=== PATIENT | male | born 1945 | race Caucasian/White ===

== ENCOUNTER → 2016-03-07 | Outpatient (CLI) | payer OTHER, MEDICARE ==
--- NOTE | 2016-03-07 13:16 | DX ---
PA Chest, Single View - March 07, 2016 Indication: Reassess pacemaker. Comparison: Two-view chest dated March 01, 2016. Findings: The left anterior chest wall dual-lead pacemaker/AICD is unchanged in configuration since . No pneumothorax, pulmonary edema, pleural effusion, or atelectasis. Heart size is kareem l. Impression: Well positioned dual-lead pacemaker/AICD is unchanged.
== END ==
LOC: FIMAGING 10:06
PROVIDERS: ATTEND Nurse Practitioner Family
DX: Z95.810 Presence of automatic (implantable) cardiac defibrillator (principal)

== ENCOUNTER → 2016-04-11 | Outpatient (CLI) | payer OTHER, MEDICARE | LOC: BHFA 14:15 | PROVIDERS: ATTEND Internal Medicine Cardiovascular Disease | DX: I25.10 Atherosclerotic heart disease of native coronary artery without angina pectoris (principal); I10 Essential (primary) hypertension; Z95.810 Presence of automatic (implantable) cardiac defibrillator; I25.5 Ischemic cardiomyopathy; I21.3 ST elevation (STEMI) myocardial infarction of unspecified site; E78.00 Pure hypercholesterolemia, unspecified ==

== ENCOUNTER → 2016-05-09 | Outpatient (CLI) | payer OTHER, MEDICARE | LOC: BHFA 08:00 | PROVIDERS: ATTEND Internal Medicine Cardiovascular Disease | DX: I25.10 Atherosclerotic heart disease of native coronary artery without angina pectoris (principal); I21.3 ST elevation (STEMI) myocardial infarction of unspecified site | CPT/HCPCS: 78472; A9560 ==

== ENCOUNTER → 2017-01-31 | Outpatient (CLI) | payer OTHER, MEDICARE | LOC: CIMAGING 09:56 | PROVIDERS: ATTEND Internal Medicine | DX: K46.9 Unspecified abdominal hernia without obstruction or gangrene (principal) ==

== ENCOUNTER → 2017-02-08 | Outpatient (CLI) | payer OTHER, MEDICARE ==
[~2017-02-08] MED LIST: IOPAMIDOL (ISOVUE 370) 100 ML BTL IV ONE
== END ==
LOC: FIMAGING 09:09
PROVIDERS: ATTEND Surgery
DX: K46.9 Unspecified abdominal hernia without obstruction or gangrene (principal); I71.4 Abdominal aortic aneurysm, without rupture; I70.1 Atherosclerosis of renal artery; K44.9 Diaphragmatic hernia without obstruction or gangrene; I25.10 Atherosclerotic heart disease of native coronary artery without angina pectoris
CPT/HCPCS: 71275; 74177; Q9967

== ENCOUNTER 2017-02-15 10:32 | Inpatient (IN) | payer OTHER, MEDICARE ==
[2017-02-15] MEDS ORDERED: LR 1,000 ML IV ONE (10:48)
[2017-02-15] MEDS ORDERED: BACITRACIN ZINC 14.2 GM OINTTUBE TP ONE (12:12)
[2017-02-15] MEDS ORDERED: BUPIVACAINE 0.25% 30 ML SDV ONE ×2 (12:12→12:49)
[2017-02-15] MEDS ORDERED: ceFAZolin 2 GM/SWFI 2 GM/20 ML SYR IVP ONE (12:33)
[2017-02-15] MEDS ORDERED: ONDANSETRON 4 MG/2 ML VIAL IVP ONE (12:33)
[2017-02-15] MEDS ORDERED: DEXAMETHASONE 4 MG/ML VIAL IVP ONE (12:33)
[2017-02-15] MEDS ORDERED: ACETAMINOPHEN 325 MG TAB PO PRN (12:36)
--- NOTE | 2017-02-15 12:38 | PDHPUP ---
History & Physical Update H&P update statement: This history and physical update is based on an assessment of the patient which was completed after admission or registration (within 24 hours), but prior to the surgery/procedure. H&P update: no change in patient's condition since H&P completed (discussed lap vs. open repair and I recommended laparoscopy if possible.)
--- NOTE | 2017-02-15 12:55 | PDANEPAE ---
ANE History of Present Illness ABDOMINAL HERNIA ANE Past Medical History - Cardiovascular History Hx Hypertension: Yes Hx Arrhythmias: No Hx Chest Pain: No Hx Coronary Artery / Peripheral Vascular Disease: No Hx CHF / Valvular Disease: No Hx Palpitations: No Cardiovascular History Comment: cardiac meds to "remodel heart tissue"-Inspra and low dose lisinopril. AAA 11-26-16. ICD: ischemic cardiomyopathy. cardiac stents 12-16 S/P [place] - Pulmonary History Hx COPD: No Hx Asthma/Reactive Airway Disease: No Hx Recent Upper Respiratory Infection: No Hx Oxygen in Use at Home: No Hx Sleep Apnea: No Sleep Apnea Screening Result - Last Documented: Positive Pulmonary History Comment: lives in [place]. OLIVA triggers only. - Neurologic History Hx Cerebrovascular Accident: No Hx Seizures: No Hx Dementia: No - Endocrine History Hx Diabetes: No - Renal History Hx Renal Disorders: No - Liver History Hx Hepatic Disorders: No - Neurological & Psychiatric Hx Hx Neurological and Psychiatric Disorders: Yes Neurological / Psychiatric History Comment: cervical stenosis-sleeps on 2 pillows. DDD - Cancer History Hx Cancer: No Cancer History Comment: basal cell skin R arm - Congenital Disorder History Hx Congenital Disorders: No - GI History Hx Gastrointestinal Disorders: No - Other Health History Other Health History: incisional hernia S/P AAA. Rib pain S/P AAA "edge of rib cage L side". DVT L leg 15- was on coumadin - Chronic Pain History Chronic Pain: No - Surgical History Prior Surgeries: AAA 11-26-16. ICD 12-16- replaced 3x. R hip resurfaced 05-09. shoulder 02-05. shoulder 2005. open R knee sx '80's ANE Review of Systems Review of Systems: - Exercise capacity METS (RN): 4 METS - Pacemaker Pacemaker Type: Permanent Pacer/Defib Pacemaker General Machine Operator: [employer] Pacemaker Model: [place]-AICD Date Pacemaker Last Checked: 12-04-16 ANE Patient History - Allergies Allergies/Adverse Reactions: midazolam HCl [From Versed] Allergy (Unknown, Verified 02/13/17 10:07) carvedilol [From Coreg] Allergy (Verified 02/13/17 10:07) STOPPED HEART meperidine HCl [From Demerol] Allergy (Verified 02/13/17 10:07) morphine Allergy (Verified 02/13/17 10:07) - Home Medications Home Medications: Atorvastatin Calcium [Lipitor 40 mg (*)] 80 mg PO DAILY 02/20/16 [Last Taken ] Lisinopril [Zestril 5 mg (*)] 2.5 mg PO DAILY@17 02/20/16 [Last Taken 02/15/17 08:00] Acetaminophen [Tylenol 325mg (*)] 0.5 each PO TID PRN 02/08/17 [Last Taken Unknown] Aspirin [Aspirin 81mg (*)] 81 mg PO DAILY 02/08/17 [Last Taken 02/10/17] Multivitamins [Multivitamin (*)] 1 each PO DAILY 02/08/17 [Last Taken 02/12/17] - NPO status NPO Since - Liquids (Date): 02/14/17 NPO Since - Liquids (Time): 21:00 NPO Since - Solids (Date): 02/15/17 NPO Since - Solids (Time): 21:00 - Smoking Hx Smoking Status: Never smoked ANE Labs/Vital Signs - Vital Signs Vital Signs: reviewed preoperatively; see RN documention for details Height: 182.88 cm Weight: 79.832 kg ANE Physical Exam - Airway Neck exam: FROM Mallampati Score: Class 3 Mouth exam: normal dental/mouth exam - Pulmonary Pulmonary: no respiratory distress - Cardiovascular Cardiovascular: regular rate and rhythym - ASA Status ASA Status: III ANE Anesthesia Plan Anesthesia Plan: general endotracheal anesthesia
[2017-02-15] MEDS ORDERED: LR 1,000 ML IV SCH ×2 (13:00→18:30)
[2017-02-15] MEDS ORDERED: ROCURONIUM 50 MG/5 ML VIAL ONE (13:07)
[2017-02-15] MEDS ORDERED: PROPOFOL 200 MG/20 ML VIAL ONE (13:08)
[2017-02-15] MEDS ORDERED: fentaNYL 100 MCG/2 ML INJ ONE ×4 (13:08→15:48)
[2017-02-15] MEDS ORDERED: ONDANSETRON 4 MG/2 ML VIAL ONE (14:05)
[2017-02-15] MEDS ORDERED: DEXAMETHASONE 4 MG/ML VIAL ONE (14:05)
[2017-02-15] MEDS ORDERED: NALOXONE HCL 0.4 MG/ML INJ IVP PRN (15:08)
[2017-02-15] MEDS ORDERED: ACETAMINOPHEN 500 MG TAB PO PRN (15:08)
[2017-02-15] MEDS ORDERED: LR 500 ML IV PRN (15:08)
[2017-02-15] MEDS ORDERED: PROMETHAZINE HCL 25 MG/ML INJ IVP PRN ×3 (15:08→17:44)
[2017-02-15] MEDS ORDERED: ONDANSETRON 4 MG/2 ML VIAL IVP PRN (15:08)
[2017-02-15] MEDS ORDERED: OXYCODONE/APAP 5/325 TAB PO PRN (15:08)
[2017-02-15] MEDS ORDERED: ENALAPRILAT DIHYDRATE 1.25 MG/ML VIAL IVP PRN (15:08)
[2017-02-15] MEDS ORDERED: SUGAMMADEX SODIUM 200 MG/2 ML VIAL IVP ONE (15:13)
[2017-02-15] MEDS ORDERED: HYDROmorphONE/DILAUDID 1 MG/ML INJ ONE (15:48)
[2017-02-15] MEDS: fentaNYL 100 MCG/2 ML INJ IVP PRN ×2 (15:50→16:40)
[2017-02-15] MEDS: HYDROmorphONE/DILAUDID 1 MG/ML INJ IVP PRN ×2 (15:50→16:40)
--- NOTE | 2017-02-15 15:50 | POSTANESTH ---
Post Anesthetic Evaluation Cardiovascular Status: Normal, Stable, Similar to Pre-Op Cond Respiratory Status: Normal, Stable, Similar to Pre-op Cond. Level of Consciousness/Mental Status: Can Participate in Eval, Mildly Sleepy, Arousable Pain Control: Inadeq, Add Tx Required Nausea/Vomiting Control: Adequate, Prn Tx Ordered Complications Possibly Related to Anesthesia: None Noted
--- NOTE | 2017-02-15 16:03 | POSTOPPROG ---
Post Op Note Date of Operation: 02/15/17 Surgeon: Savage Lucero (, FACS) Hoist Worker: Gely Macias PAS-3 Anesthesiologist: Yunior Bennett MD and Refugio Barnes MD Anesthesia: GET(General Endotracheal) Pre-op Diagnosis: complex thoracoabdominal incisional hernia Post-op Diagnosis: same Indication: laparoscopic repair incisional hernia Procedure: laparoscopic repair incisional hernia Findings: 9 x 14 cm incisional hernial defect left subcostal Inf/Abcess present in the surg proc area at time of surgery?: No EBL: Minimal (10)
[2017-02-15] MEDS ORDERED: LISINOPRIL 5 MG TAB PO SCH (17:00)
[2017-02-15] MEDS: ONDANSETRON 4 MG/2 ML VIAL IVP PRN (17:09)
[2017-02-15] MEDS ORDERED: HYDROmorphone HCL/NS/PF 0.4 MG/2 ML SYR IVP PRN (17:43)
[2017-02-15] MEDS: OXYCODONE/APAP 5/325 TAB PO PRN ×3 (18:11→22:42)
[2017-02-16] MEDS: OXYCODONE/APAP 5/325 TAB PO PRN ×2 (04:08→08:56)
--- NOTE | 2017-02-16 05:40 | GOP ---
[f rep st] OPERATIVE REPORT DATE OF OPERATION: 02/15/2017 SURGEON: Savage Lucero MD, FACS STUDY LEAD: BEBA Del Real-3 ANESTHESIA: General endotracheal. ANESTHESIOLOGIST: Lexi Bennett MD and Savage Barnes MD PREOPERATIVE DIAGNOSIS: Complex thoracoabdominal incisional hernia. POSTOPERATIVE DIAGNOSIS: Complex thoracoabdominal incisional hernia. PROCEDURE PERFORMED: Laparoscopic repair of complex thoracoabdominal incisional hernia. FINDINGS: 9 cm x 14 cm hernial defect at the costochondral junction in the left upper quadrant extending into the oblique musculature with primary contents omental fat. No evidence of lateral diaphragmatic hernia. 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 ESTIMATED BLOOD LOSS: 10 cc. DESCRIPTION OF PROCEDURE: After informed consent was obtained, the patient was brought to the operating room and placed under general anesthesia, taking care not to flex his neck as he had significant degenerative disk disease. Once the patient was intubated, he was carefully positioned with the left side slightly elevated and the left arm draped over the chest. The partial lateral position was checked for all pressure points which were padded. Patient was carefully secured to the table. His pacemaker had been deactivated preoperatively in regard to its defibrillator function. The chest and abdomen were prepped and draped in the usual sterile fashion. Before proceeding, a time-out and identification of the patient was performed. 0.25% Marcaine was used to infiltrate all incision sites; a total of 30 mL were used. The access incision was made at the left rectus border below the level of the umbilicus. Dissection was carried out down through the anterior sheath. The internal oblique muscle was retracted laterally. The posterior sheath was grasped with hemostats, incised. The peritoneum was bluntly entered and a 12 mm trocar established at this site. A pneumoperitoneum was established and a 30-degree scope was introduced. Peritoneal cavity was visualized. Patient had predominant adhesions to the anterior abdominal wall beneath the incision. The remainder of the abdomen appeared unremarkable. The hernia contained omental fat and was retracting the distal end of the transverse colon anteriorly. Two additional 5 mm ports were placed under direct visualization. This allowed introduction of atraumatic grasping forceps and, moving the camera from port to port, I was able to reduce the omentum from the hernia using the Harmonic Scalpel for hemostasis. After this was reduced, the remainder of the omentum was taken down to the falciform ligament medially and laterally down to the splenic flexure which was mobilized until the tip of the spleen came into view. This was allowed to retract posteriorly. The defect was carefully measured at 9 x 14 cm and extended to the costochondral margin where there was instability deep to the incision. There, however, was no apparent intercostal hernia. The diaphragm was inspected and noted to have been intact other than a chronic appearing hiatal hernia. A piece of composite polypropylene collagen mesh was brought onto the field after sterility was confirmed. This was cut to approximately 14 x 18 cm to fully overlap the defect. Four stay sutures were placed with 0 Ethibond at the corners and the mesh was rolled up and passed through the 12 mm port, unfurled in the abdomen, and positioned deep to the defect. Using a [employer] suture passer, the sutures were individually pulled up to the abdominal wall securing the mesh to the abdominal wall along the perimeter of the defect. I chose not to use the 4th anchor at the cephalad most corner of the hernia as we had more than adequate overlap at this level and it would have potentially required a transcostal suture. Given the patient's preoperative intercostal neuritis and severe postoperative pain, I thought this would potentially contribute to additional symptomatology. Once the mesh was secured at these anchor points, a ProTack absorbable tacker was brought onto the field and used to secure the mesh to the abdominal wall and peritoneum circumferentially. Approximately 24 ProTacks were placed along the perimeter of the mesh including deep to the costal margin. Upon completion, the repair was intact without undue tension. The operative field appeared hemostatic. The omentum was gently maneuvered so that it laid deep to the mesh and overlay the distal transverse colon and splenic flexure. The pneumoperitoneum was subsequently slowly evacuated until the mesh came in contact with the omentum. The 12 mm port site was closed immediately prior to this with a transfascial closure needle and 0 Ethibond suture. The anterior fascia was closed with 0 Ethibond suture. The remaining ports were removed and, the entire pneumoperitoneum having been evacuated, subcutaneous tissues were inspected for hemostasis. The subcutaneous tissue was closed with 3-0 Monocryl suture. Skin was closed with 4 -0 Monocryl suture in a subcuticular fashion. Topical Dermabond was applied to all incisions. Patient was extubated in the operating room and returned to the recovery room in satisfactory condition. Needle, sponge, and instrument count were correct. COMPLICATIONS: None. /[id number]/MODL MTDD
[2017-02-16 06:24] LABS: % IMMATURE GRANULYOCYTES 0.5 % (0.0-1.1); ABSOLUTE IMMATURE GRANULOCYTES 0.08 10^3/uL (0.00-0.10); ADD DIFF? NO; ADD MORPH? NO; ADD SCAN? NO; ATYPICAL LYMPHOCYTE FLAG 0 (0-99); FRAGMENT RBC FLAG 0 (0-99); HEMATOCRIT 37.6 % (40.0-51.0); HEMOGLOBIN 12.4 g/dL (13.7-17.5); LEFT SHIFT FLG 10 (0-99); LIPEMIA HEMOLYSIS FLAG 80 (0-99); MEAN CELL HEMOGLOBIN 32.3 pg (27.9-34.1); MEAN CELL VOLUME 97.9 fL (81.5-99.8); MEAN PLATELET VOLUME 10.1 fL (8.7-11.7); PLATELET CLUMPS FLAG 0 (0-99); PLATELET COUNT 206 10^3/uL (150-400); RED BLOOD CELL COUNT 3.84 10^6/uL (4.40-6.38); RED CELL DISTRIBUTION WIDTH 13.2 % (11.5-15.2)
[2017-02-16] MEDS: ASPIRIN 81 MG CHEWABLE TAB PO SCH ×3 (08:57→09:59)
[2017-02-16] MEDS: ATORVASTATIN CALCIUM 40 MG TAB PO SCH (08:57)
[2017-02-16] MEDS: CLOPIDOGREL BISULFATE 75 MG TAB PO SCH ×3 (08:57→09:58)
[2017-02-16] MEDS: EPLERENONE 25 MG TAB PO SCH ×2 (09:04→09:59)
[2017-02-16] MEDS ORDERED: LACTULOSE 20 GM/30 ML UDCUP PO PRN (09:59)
[2017-02-16] MEDS ORDERED: BISACODYL 10 MG SUPP PR PRN (09:59)
[2017-02-16] MEDS ORDERED: MAGNESIUM HYDROXIDE 30 ML UDCUP PO PRN (09:59)
[2017-02-16] MEDS ORDERED: POLYETHYLENE GLYCOL 3350 17 GM PKT PO PRN (09:59)
--- NOTE | 2017-02-16 10:01 | SOAPPROG ---
SOAP Progress Note Assessment/Plan: Assessment: Plan: Subjective: complaining of sever pain requiring parenteral narcotics, nausea denies chest pain Objective: Vital Signs Temp Pulse Resp BP Pulse Ox 36.5 C 56 L 25 H 95/51 L 98 02/16/17 07:24 02/16/17 07:24 02/16/17 07:24 02/16/17 07:24 02/16/17 07:24 Laboratory Results 02/16/17 06:11 02/15/17 02/16/17 02/17/17 05:59 05:59 05:59 Intake Total 950 Output Total 550 Balance 400 - Pending Discharge Pending Discharge Within 24 Hours: Yes Pending Discharge Date: 02/17/17 Pending Discharge Time: 11:00 Physical Exam - Physical Exam General Appearance: alert, mild distress Neck: non-tender Respiratory: normal breath sounds, decreased breath sounds (left base), pain on movement Cardiac/Chest: regular rate, rhythm Abdomen: normal bowel sounds, soft, other (lap incisions healing well) Male Genitalia: deferred Rectal: deferred Skin: warm/dry Extremities: normal inspection Neuro/Psych: oriented x 3, other (anxious) ICD10 Worksheet Patient Problems: Problems Problem Status Onset AAA (abdominal aortic aneurysm) Acute Acute coronary syndrome Acute Acute myocardial infarction due to left coronary artery occlusion Acute Acute myocardial infarction of anterior wall, initial episode of care Acute Anasarca Acute Chronic Disease Mgmt/Transitional Care Acute Diverticulitis Acute First degree atrioventricular block Acute Heart failure Acute History of DVT of lower extremity Acute Pulmonary edema Acute S/P cardiac cath Acute Syncope Acute
[2017-02-16] MEDS: CALCIUM CARBONATE 500 MG CHEWABLE TAB PO PRN ×2 (10:09→11:35)
--- NOTE | 2017-02-16 10:49 | ASMTCMCOM ---
CM Note CM Note Notes: Pt admitted for lap hernia repair. PT eval pending. C/M will continue to follow. Date Signed: 02/16/2017 10:48 AM Electronically Signed By:Kelsi Rodrigez LCSW
[2017-02-16] MEDS: oxyCODONE IR 5 MG TAB PO PRN ×2 (14:02→19:52)
[2017-02-16] MEDS: ACETAMINOPHEN 500 MG TAB PO PRN ×3 (14:03→22:06)
[2017-02-16] MEDS: ONDANSETRON 4 MG/2 ML VIAL IVP PRN ×2 (16:17→22:54)
[2017-02-16] MEDS: SENNOSIDES/DOCUSATE SODIUM TAB PO SCH (19:51)
[2017-02-17] MEDS: oxyCODONE IR 5 MG TAB PO PRN ×4 (00:03→13:57)
[2017-02-17] MEDS: ACETAMINOPHEN 500 MG TAB PO PRN ×3 (02:13→11:24)
[2017-02-17 08:18] VITALS: PULSE 62; TEMP 98
[2017-02-17] MEDS: ATORVASTATIN CALCIUM 40 MG TAB PO SCH (08:30)
[2017-02-17] MEDS: EPLERENONE 25 MG TAB PO SCH (08:30)
[2017-02-17] MEDS: CLOPIDOGREL BISULFATE 75 MG TAB PO SCH (08:30)
[2017-02-17] MEDS: ASPIRIN 81 MG CHEWABLE TAB PO SCH (08:30)
[2017-02-17] MEDS ORDERED: BISACODYL 10 MG SUPP PR ONE (08:35)
--- NOTE | 2017-02-17 08:41 | SOAPPROG ---
SOAP Progress Note Assessment/Plan: Assessment:POD #2 s/p lap incisional hernia repair HTN-low BP post op w/Lisinopril held CHF-continued on Inspra AICD-reactivated post op Plan: discussed importance of bowel program while taking narcotics. He agrees to start Senokot today. I recommended a Dulcolax suppository or Fleets enema to get things started He and his remain highly anxious about potential problems and we discussed activity and wound care I encouraged him to make an appointment with Dr. Butts and Dr. Polk 02/17/17 08:37 Subjective: feeling bloated/refused Senokot last night passing some flatus Objective: Vital Signs Temp Pulse Resp BP Pulse Ox 36.7 C 62 18 115/71 91 L 02/17/17 08:00 02/17/17 08:00 02/17/17 08:00 02/17/17 08:00 02/17/17 08:00 Laboratory Results 02/16/17 06:11 02/16/17 02/17/17 02/18/17 05:59 05:59 05:59 Intake Total 950 1100 250 Output Total 550 650 Balance 400 1100 -400 - Pending Discharge Pending Discharge Within 24 Hours: Yes Pending Discharge Date: 02/17/17 Pending Discharge Time: 11:00 Physical Exam - Physical Exam General Appearance: no apparent distress Respiratory: lungs clear, decreased breath sounds Cardiac/Chest: regular rate, rhythm Abdomen: normal bowel sounds, soft, distended, other (incisions o.k.) Male Genitalia: deferred Rectal: deferred Skin: warm/dry Neuro/Psych: normal mood/affect, oriented x 3 ICD10 Worksheet Patient Problems: Problems Problem Status Onset AAA (abdominal aortic aneurysm) Acute Acute coronary syndrome Acute Acute myocardial infarction due to left coronary artery occlusion Acute Acute myocardial infarction of anterior wall, initial episode of care Acute Anasarca Acute Chronic Disease Mgmt/Transitional Care Acute Diverticulitis Acute First degree atrioventricular block Acute Heart failure Acute History of DVT of lower extremity Acute Pulmonary edema Acute S/P cardiac cath Acute Syncope Acute
--- NOTE | 2017-02-17 08:58 | PDDCSUM ---
Discharge Summary Discharge Summary: #[id number] Nick Lucero MD, FACS
--- NOTE | 2017-02-17 09:45 | GDS ---
[f rep st] DISCHARGE SUMMARY DISCHARGE DIAGNOSES: 1. Complex thoracoabdominal incisional hernia. 2. Coronary artery disease, status post myocardial infarction and coronary stent placement, 2016. 3. Ischemic cardiomyopathy. 4. 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 5. 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 6. Hypertension. 7. Indwelling automatic implantable converter defibrillator. PROCEDURE PERFORMED: 02/15/2017, laparoscopic repair of incisional hernia. HOSPITAL COURSE: For details of admission history and physical, please see dictated summary. Briefl y, the patient is a 71-year-old male, who presented with severe abdominal pain, approximately 2 and h detention months status post repair of a thoracoabdominal aneurysm at [facility] in November. The patient had dehisced his oblique fascia and had a hernia below the costal margin anteriorly. His costochondral junction was unstable and had neuropathic pain referred to the intercostal nerve at th e 8th and 9th interspaces. His hernia was reducible. At the time of surgery, he was pound found to have a fat containing hernia in the left upper quadrant measuring 9 x 14 cm, and this was repaired wi th a composite polypropylene collagen mesh overlay. He had 3 laparoscopic port incisions and no jennie l involvement in the hernia. His previous diaphragm takedown repair had held. Postoperatively, ginger ent had moderate to severe pain requiring parenteral narcotics. He was placed on cardiac monitoring. His AICD, which was disabled during the surgery, was re-enabled in the postoperative recovery room and did not fire in the postoperative period. He had intermittent paced rhythm. His blood pressure was lower than normal, and his lisinopril was held. He was however continued on Inspra. The patient tolerated a regular diet. He had a mild ileus and was started on a bowel program postoperatively. At time of discharge, he was afebrile, ambulatory. His incision healing well without sign of infecti on, and he did not require supplemental oxygen. Patient was instructed in activity and wound care, and will follow up in my office in the next week o r two, and with his primary care physician, Dr. Butts, and with Dr. Polk, sometime in the next 1-2 months. DISCHARGE MEDICATIONS: Oxycodone 5 mg 1-2 q.4 hours p.r.n. pain, #60. Tylenol 500 mg p.o. q.4 hours p.r.n. pain. Senokot-S 1-2 p.o. b.i.d., until no longer requiring oxycodone. He was restarted on P lavix 75 mg p.o. daily, and aspirin 81 mg p.o. daily, which was not held preoperatively. He was also restarted on Inspra/Eplerenone 25 mg p.o. daily, and Lipitor 40 mg p.o. daily, Lisinopril was held u ntil his blood pressure returns into the normal range. CONDITION AT TIME OF DISCHARGE: Satisfactory. /[id number]/MODL
[2017-02-17 11:13] VITALS: BP 121/70; RESP 16; O2SAT 95
[2017-02-17] MEDS: SENNOSIDES/DOCUSATE SODIUM TAB PO SCH (11:25)
--- NOTE | 2017-02-17 16:29 | ASDISCHSUM ---
Discharge Information Plan Status:Home with No Needs Medically Cleared to Leave:02/16/2017 Discharge Date:02/17/2017 03:07 PM D/C Disposition: ADT D/C Disposition:Home, Routine, Self-Care Projected Discharge Date:02/17/2017 12:00 AM Transportation at D/C: Discharge Delay Reason: Follow-Up Date:02/17/2017 12:00 AM Discharge Slot: Final Diagnosis: Placement Information Patient Contact Information Contact Name:NOHEMY Relationship: Address:[address] [place] Alternate Phone: State/Zip Code:[place] [address] Email: Financial Information Financial Class: Primary Plan Desc:MEDICARE OUTPATIENT Primary Plan Number:[id number] Secondary Plan Desc:[employer]/MDR SUPPLEMENT Secondary Plan Number:[id number] Assessment Information [facility] CM Progress Note CM Note CM Note Notes: Pt admitted for lap hernia repair. PT eval pending. C/M will continue to follow. Date Signed: 02/16/2017 10:48 AM Electronically Signed By:Kelsi Rodrigez LCSW Intervention Information Intervention Type:*[employer] jennie edmundson 72 Date of Service:02/15/2017 04:04 PM Patient Type:Inpatient Staff Member:EMY Reaves, Aure Hours: Discipline: Severity: Comment:Hero 72 for 02/15/2017 16:04 to 017 11:10 as patient discharged 02/17/2017 13:35 (< 2 MN LOS after patient admission status changed from observation to inpatient).
== END 2017-02-17 15:07 | disposition home or self-care (01) | DRG 941 ==
LOC: F3E 10:36 → OBSVTOIN 02-16 11:10
PROVIDERS: ADMIT Surgery; ATTEND Surgery
PROC: 0WW Anatomical Regions, General, Revision (ICD-10-PCS; principal; 2017-02-15 12:00)
DX: G89.18 Other acute postprocedural pain (principal); K43.2 Incisional hernia without obstruction or gangrene; I10 Essential (primary) hypertension; I25.10 Atherosclerotic heart disease of native coronary artery without angina pectoris; I25.2 Old myocardial infarction; G58.8 Other specified mononeuropathies; Z95.810 Presence of automatic (implantable) cardiac defibrillator; Z95.5 Presence of coronary angioplasty implant and graft
CPT/HCPCS: 97116-GP; 97161-GP; C1727; C1781; G8978-GP-CI; G8978-GP-CJ; G8979-GP-CI; G8980-GP-CI; J0690; J1100; J1170; J2405; J2550; J2704; J3010

== ENCOUNTER → 2017-03-08 | Outpatient (CLI) | payer OTHER, MEDICARE | LOC: BMCIMAGING 09:52 | PROVIDERS: ATTEND Internal Medicine | DX: M51.37 Other intervertebral disc degeneration, lumbosacral region (principal); M47.819 Spondylosis without myelopathy or radiculopathy, site unspecified ==

== ENCOUNTER → 2018-01-07 | Outpatient (CLI) | payer OTHER, MEDICARE | LOC: BHFA 15:30 | PROVIDERS: ATTEND Internal Medicine Cardiovascular Disease | DX: I50.9 Heart failure, unspecified (principal) ==

== ENCOUNTER → 2018-01-09 | Outpatient (CLI) | payer OTHER, MEDICARE | LOC: FIMAGING 09:40 | PROVIDERS: ATTEND Internal Medicine Cardiovascular Disease | DX: I50.9 Heart failure, unspecified (principal); I25.5 Ischemic cardiomyopathy ==

== ENCOUNTER → 2018-03-19 | Outpatient (CLI) | payer OTHER, MEDICARE | LOC: BHFA 09:15 | PROVIDERS: ATTEND Internal Medicine Cardiovascular Disease | DX: I50.9 Heart failure, unspecified (principal); R06.02 Shortness of breath ==